=== PATIENT | female | born 1975 | race Caucasian/White ===

== ENCOUNTER 2020-12-27 09:38 | Emergency (ER) | payer MEDICAID ==
[~2020-12-27] VITALS: Ht 175.3 cm; Wt 95.3 kg
[2020-12-27 10:19] LABS: Basophils # (auto) 0.1 10 ^3/uL (0-0.2); Basophils % (auto) 1.2 % (0.0-2.0); Eosinophils # (auto) 0.3 10 ^3/uL (0-0.8); Eosinophils % (auto) 3.5 % (0.0-7.0); Hematocrit 44.1 % (36.0-46.0); Lymphocytes # (auto) 2.6 10 ^3/uL (0.4-5.4); Lymphocytes % (auto) 36.3 % (10.0-50.0); Mean Corpuscular Hemoglobin 30.3 pg (28.0-32.0); Mean Corpuscular Hgb Conc. 34.1 g/dL (32.0-36.0); Mean Corpuscular Volume 88.8 fL (80.0-100.0); Monocytes # (auto) 0.5 10 ^3/uL (0-1.3); Monocytes % (auto) 6.8 % (0.0-12.0); Neutrophils # (auto) 3.7 10 ^3/uL (1.6-8.6); Neutrophils % (auto) 52.2 % (37.0-80.0); Nucleated Red Blood Cells % 0.3 %; Red Blood Cells 4.96 10^6/uL (4.0-5.20); Red Cell Distribution Width 13.3 % (11.8-14.3); White Blood Cell 7.1 10^3/uL (4.4-10.8)
[2020-12-27 10:31] LABS: Potassium 4.3 mmol/L (3.5-5.1)
[2020-12-27 10:39] LABS: Albumin 3.8 g/dL (3.4-5.0); BUN/Creatinine Ratio 17.4; Bilirubin, Total 1.1 mg/dL (0.2-1.0); Calcium 8.9 mg/dL (8.5-10.1); Total Protein 7.6 g/dL (6.4-8.2)
[2020-12-27 10:57] VITALS: BP 114/68
[2020-12-27 11:13] LABS: Urine Bacteria FEW /hpf (None Seen); Urine Blood 1+ /uL (Negative); Urine Mucus FEW (None Seen); Urine Specific Gravity 1.028 (1.001-1.035); Urine WBC 3 /hpf (0 - 5)
[2020-12-27] MEDS ORDERED: KETOROLAC TROMETH 60MG/2ML VIAL IM ONE (11:45)
== END 2020-12-27 12:22 | disposition home or self-care (01) ==
LOC: ER 09:38
DX: R10.11 Right upper quadrant pain (principal); K76.0 Fatty (change of) liver, not elsewhere classified; R94.8 Abnormal results of function studies of other organs and systems; Z20.822 Contact with and (suspected) exposure to COVID-19
CPT/HCPCS: 36415; 76705; 80053; 81001; 85025; 96372; 99284; C9803; J1885; U0003

== ENCOUNTER 2022-10-13 09:28 | Emergency (ER) | payer MEDICAID ==
[~2022-10-13] VITALS: Ht 172.7 cm; Wt 104.0 kg
[2022-10-13 10:00] VITALS: BP 150/101
[2022-10-13] MEDS ORDERED: PENI500T2 PO (11:14)
[2022-10-13] MEDS ORDERED: ACET500T58 PO (11:14)
[2022-10-13] MEDS ORDERED: cefTRIAXone SOD 1,000 MG VL IM ONE (11:15)
[2022-10-13] MEDS ORDERED: ACETAMINOPHEN 500 MG TAB PO ONE (11:15)
== END 2022-10-13 12:10 | disposition home or self-care (01) ==
LOC: ER 09:28
DX: K04.7 Periapical abscess without sinus (principal); F32.9 Major depressive disorder, single episode, unspecified; Z79.1 Long term (current) use of non-steroidal anti-inflammatories (NSAID); Z79.899 Other long term (current) drug therapy
CPT/HCPCS: 96372; 99283; J0696

== ENCOUNTER 2024-09-02 00:30 | Emergency (ER) | payer OTHER, MEDICAID ==
[~2024-09-02] VITALS: Ht 172.7 cm; Wt 90.9 kg
[~2024-09-02 00:30] MED LIST: ACET500T58 PO; PENI500T2 PO
[2024-09-02] MEDS ORDERED: ACE3T PO (03:54)
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
[2024-09-02] MEDS: ACETAMINOPHEN 325 MG TAB PO ONE (03:58)
[2024-09-02 04:10] VITALS: BP 144/81; PULSE 68; RESP 16; TEMP 97.8; O2SAT 98
--- NOTE | 2024-09-02 04:51 | DVH ---
CLINICAL INDICATION: left forearm pain TECHNIQUE: XY L FOREARM XRAY Comparison: None FINDINGS/IMPRESSION: : There is no evidence of acute fracture or dislocation. Soft tissues are unremarkable.
--- NOTE | 2024-09-02 04:51 | DVH ---
INDICATION: thoracic back pain TECHNIQUE: 2 views of the thoracic spine were obtained. COMPARISON: None FINDINGS: There is no evidence of fracture, subluxation and/or dislocation. The alignment is anatomical. The paravertebral soft tissues were unremarkable. IMPRESSION: 1. Of the visualized spine, there is no evidence for fracture or subluxation.
--- NOTE | 2024-09-02 05:37 | DVH ---
EXAM: CT CERVICAL WITHOUT CONTRAST INDICATION: neck pain EXAM DATE: 09/02/2024 03:47 AM COMPARISON: None TECHNIQUE: Multiple axial CT images of the cervical spine were obtained using bone algorithm. Sagitta l and coronal reformatting was done. Bone and soft tissue windows were reviewed. Radiation Dose Information: CT Dose: CTDI volume is 23.9 mGy. Dose-length product is 632.8 mGy*cm FINDINGS: The cervical alignment is intact. No acute cervical spine fracture is identified. The vertebral body heights are intact. No suspicious osseous lesions are identified. Multilevel intervertebral disc space narrowing and ventral spurring. No significant spinal stenosis. Multilevel neural foraminal stenosis. There is no prevertebral soft tissue swelling. Lung apices are clear. IMPRESSION: 1. No evidence of acute cervical spine fracture or traumatic malalignment. 2. Multilevel cervical spondylosis. All CT scans at this medical facility are performed using dose modulation techniques as appropriate t o a performed exam including the following: Automated exposure control was utilized; adjustment of th e MA and/or KV according to patient size; and use of iterative reconstruction technique.
== END 2024-09-02 06:37 | disposition home or self-care (01) ==
LOC: ER 00:30
DX: S16.1XXA Strain of muscle, fascia and tendon at neck level, initial encounter (principal); S29.012A Strain of muscle and tendon of back wall of thorax, initial encounter; S50.12XA Contusion of left forearm, initial encounter; F32.A Depression, unspecified; Z79.899 Other long term (current) drug therapy; V49.9XXA Car occupant (driver) (passenger) injured in unspecified traffic accident, initial encounter; Y93.89 Activity, other specified; Y92.89 Other specified places as the place of occurrence of the external cause; Y99.8 Other external cause status
CPT/HCPCS: 72070; 72125; 73090

== ENCOUNTER 2025-04-05 10:49 | Emergency (ER) | payer MEDICAID, OTHER ==
[~2025-04-05] VITALS: Ht 172.7 cm; Wt 78.5 kg
[~2025-04-05 10:49] MED LIST changes: +ACE3T PO
--- NOTE | 2025-04-05 11:32 | ED.PDOC ---
History of Present Illness HPI Comments 50-year-old female presents to the ER with prior medical history of depression, bipolar disorder and a chief complaint of nausea and vomiting. Patient reports on having had a sudden onset of nausea and vomiting on Friday of 04/02/2025. Patient states on recently being prescribed bupropion by her psych physician on Friday of 03/28/2025 and assumes that it might be the medication causing the symptoms. Denies any other symptoms at this time. Denies chills, fever, /D, SOB, CP. No other associated symptoms, modifiers, recent injuries or sick contacts present at this time. Chief Complaint: Nausea/Vomiting Time Seen by MD: 11:25 Primary Care Provider: UNKNOWN Reviewed Notes: Nurses Notes, Medications, Allergies Allergies: Coded Allergies: No Known Drug Allergy (Verified Allergy, Unknown, 12/27/20) Home Meds Active Scripts Acetaminophen W/ Codeine (Tylenol W/Cod #3) 1 Tab Tb, 1 TAB PO Q6HPRN, #10 TAB 0 Refills Prov:HOLLI MCGRAW 09/02/24 Acetaminophen (Acetaminophen) 500 Mg Tab, 500 MG PO TIDP PRN for 7 Days, #21 TAB 0 Refills Prov:MUKESH METZ MULE OPERATOR 10/13/22 Penicillin V Potassium (Veetids) 500 Mg Tab, 500 MG PO QID for 10 Days, #40 TAB 0 Refills Prov:MUKESH METZ MULE OPERATOR 10/13/22 Information Source: Patient Mode of Arrival: Ambulatory Severity: Moderate Timing: Days Duration: Since onset, Days Prehospital treatment: None Past Medical History PAST MEDICAL HISTORY: Depression Past Medical History (Other): Bipolar disorder Surgical History: Denies all surgeries BUCKLE INSPECTOR History: Denies all BUCKLE INSPECTOR Hx Family History Family History: Reviewed,noncontributory to illness, Unknown Social History Smoker: Non-Smoker Alcohol: Denies ETOH Use Drugs: Denies Drug Use Lives In: Home Constitutional: denies: chills, diaphoresis, fatigue, fever, malaise, sweats, weakness, others EENTM: denies: blurred vision, double vision, ear bleeding, ear discharge, ear drainage, ear pain, ear ringing, eye pain, eye redness, hearing loss, mouth pain, mouth swelling, nasal discharge, nose bleeding, nose congestion, nose pain, photophobia, tearing, throat pain, throat swelling, voice changes, others Respiratory: denies: cough, hemoptysis, orthopnea, SOB at rest, shortness of breath, SOB with excertion, stridor, wheezing, others Cardiovascular: denies: chest pain, dizzy spells, diaphoresis, Dyspnea on exertion, edema, irregular heart beat, left arm pain, lightheadedness, palpitations, PND, syncope, others Gastrointestinal: reports: nausea, vomiting; denies: abdomen distended, abdominal pain, blood streaked bowels, constipated, diarrhea, dysphagia, diffi culty swallowing, hematemesis, melena, poor appetite, poor fluid intake, rectal bleeding, rectal pain, others Genitourinary: denies: abnormal vagina bleeding, burning, dyspareunia, dysuria, flank pain, frequency, hematuria, incontinence, pain, , vagina discharge, urgency, others Neurological: denies: dizziness, fainting, headache, left sided numbness, left sided weakness, numbness, paresthesia, pre-existing deficit, right sided numbness, right sided weakness, seizure, speech problems, tingling, tremors, weakness, others Musculoskeletal: denies: back pain, gout, joint pain, joint swelling, muscle pain, muscle stiffness, neck pain, others Integumetry: denies: bruises, change in color, change in hair/nails, dryness, laceration, lesions, lumps, rash, wounds, others Allergic/Immunocompromised: denies: Difficulty Healing, Frequent Infections, Hives, Itching, others Hematologic/Lymphatic: denies: anemia, blood clots, easy bleeding, easy bruising, swollen glands, others Endocrine: denies: excessive hunger, excessive sweating, excessive thirst, excessive urination, flushing, intolerance to cold, intolerance to heat, unexplained weight gain, unexplained weight loss, others Psychiatric: denies: anxiety, bipolar disorder, depression, hopeless, panic disorder, schizophrenia, sleepless, suicidal, others All Other Systems: Reviewed and Negative Physical Exam General Appearance: Moderate Distress, Normal HEENT: Normal ENT Inspection, Pharynx Normal, TMs Normal Neck: Full Range of Motion, Non-Tender, Normal, Normal Inspection Respiratory: Chest Non-Tender, Lungs Clear, No Accessory Muscle Use, No Respira tory Distress, Normal Breath Sounds Cardiovascular: No Edema, No JVD, No Murmur, No Gallop, Normal Peripheral Pulses, Regular Rate/Rhythm Breast Exam: Deferred Gastrointestinal: No Organomegaly, Non Tender, No Pulsatile Mass, Normal Bowel Sounds, Soft Genitalia: Deferred Pelvic: Deferred Rectal: Deferred Extremities: No calf tenderness, Normal capillary refill, Normal inspection, Normal range of motion, Non-tender, No pedal edema Musculoskeletal : Apperance: Normal Neurologic: Alert, unit educator II-XII nml as Tested, No Motor Deficits, Normal Affect, Normal Mood, No Sensory Deficits Cerebellar Function: Normal Reflexes: Normal Skin: Dry, Normal Color, Warm Peripheral Pulses: 3+ Radial (R), 3+ Radial (L) Lymphatic: No Adenopathy Was a procedure done? Was a procedure done?: No Differential Dx Considerations may include: Anemia Electrolyte imbalance X-Ray, Labs, Meds, VS Vital Signs Date Time Temp Pulse Resp B/P (MAP) Pulse Ox O2 Delivery O2 Flow Rate FiO2 04/05/25 12:30 120 18 95 Room Air 04/05/25 12:30 97.7 120 18 134/83 (100) 95 97.7 04/05/25 10:51 98.0 124 17 148/113 96 98.0 Lab Test 04/05/25 12:04 Range/Units White Blood Count 11.9 H 4.4-10.8 10^3/uL Red Blood Count 5.11 4.0-5.20 10^6/uL Hemoglobin 15.5 12.2-16.2 g/dL Hematocrit 44.4 36.0-46.0 % Mean Corpuscular Volume 86.9 80.0-100.0 fL Mean Corpuscular Hemoglobin 30.4 28.0-32.0 pg Mean Corpuscular Hemoglobin Concent 35.0 32.0-36.0 g/dL Red Cell Distribution Width 12.7 11.8-14.3 % Platelet Count 387 140-450 10^3/uL Mean Platelet Volume 7.7 6.9-10.8 fL Neutrophils (%) (Auto) 65.5 37.0-80.0 % Lymphocytes (%) (Auto) 26.8 10.0-50.0 % Monocytes (%) (Auto) 6.4 0.0-12.0 % Eosinophils (%) (Auto) 0.5 0.0-7.0 % Basophils (%) (Auto) 0.8 0.0-2.0 % Neutrophils # (Auto) 7.8 1.6-8.6 10 ^3/uL Lymphocytes # (Auto) 3.2 0.4-5.4 10 ^3/uL Monocytes # (Auto) 0.8 0-1.3 10 ^3/uL Eosinophils # (Auto) 0.1 0-0.8 10 ^3/uL Basophils # (Auto) 0.1 0-0.2 10 ^3/uL Nucleated Red Blood Cells 0.0 % Sodium Level 139 136-145 mmol/L Potassium Level 3.6 3.5-5.1 mmol/L Chloride Level 104 98-107 mmol/L Carbon Dioxide Level 19 L 20-31 mmol/L Anion Gap 16 H 5-15 Blood Urea Nitrogen 12 9-23 mg/dL Creatinine 0.91 0.550-1.02 mg/dL Glomerular Filtration Rate Calc 76 >90 mL/min BUN/Creatinine Ratio 13.2 10.0-20.0 Serum Glucose 105 74-106 mg/dL Calcium Level 10.3 8.7-10.4 mg/dL Current Medications Medications (Trade) Dose Ordered Sig/Aimee Route Start Time Stop Time Status Last Admin Sodium Chloride 1,000 ml @ 1,000 mls/hr Q1H ONCE IV 04/05/25 12:00 04/05/25 12:59 DC 04/05/25 12:00 Ondansetron HCl (Zofran) 4 mg ONCE ONCE IV 04/05/25 12:00 04/05/25 12:24 DC 04/05/25 12:54 Patient alert. Vitals stable. Establish intravenous access. Saturation pristine on room air. Tachycardic. WBC elevated. Was given Zofran. Possible gastroenteritis. Abdomen is soft nontender. No acute process. Explained to the patient. Was told to follow up with her primary care physician. Was told to come back if there is any problem. Time of 1ST Reevaluation: 11:55 Reevaluation 1ST: Unchanged Patient Education/Counseling: Diagnosis, Treatment, Prognosis Family Education/Counseling: No Family Present SEPSIS Sepsis Screen Date sepsis recognized/suspect: Apr 05, 2025 Time Sepsis recognized/suspect: 105 Recent Procedure: No On Antibiotic Therapy: No Respiratory Rate >20: No Heart Rate >90: Yes Temp<36 C (96.8 F) or >38.3 C: No SBP <90 or MAP <65 mmHG: No New Acute Mental Status Change: No Is the patient on CPAP, BIPAP,: No Physician Orders Urinalysis (04/05/25 11:55) Vital Signs Date Time Temp Pulse Resp B/P (MAP) Pulse Ox O2 Delivery O2 Flow Rate FiO2 04/05/25 12:30 120 18 95 Room Air 04/05/25 12:30 97.7 120 18 134/83 (100) 95 97.7 04/05/25 10:51 98.0 124 17 148/113 96 98.0 Laboratory Tests Test 04/05/25 12:04 White Blood Count 11.9 10^3/uL (4.4-10.8) H Medications Medications Dose Ordered Sig/Aimee Route Start Time Stop Time Status Last Admin Dose Admin Ondansetron HCl 4 mg ONCE ONCE IV 04/05/25 12:00 04/05/25 12:24 DC 04/05/25 12:54 Sodium Chloride 1,000 ml @ 1,000 mls/hr Q1H ONCE IV 04/05/25 12:00 04/05/25 12:59 DC 04/05/25 12:00 Departure 1 Departure Time of Disposition: 14:15 Impression: Primary Impression: Gastroenteritis Disposition: 01 HOME / SELF CARE / HOMELESS Condition: Good e-Prescriptions Ondansetron Odt 4MG Tab (ZOFRAN PO) 4 Mg Tb 4 MG PO BS for 5 Days, #5 TAB ODT TAB-DISSOLVE IN MOUTH, THEN SWALLOW Prov: HARITHA GOLDSMITH MD 04/05/25 Cephalexin (KEFLEX CAPSULE) 250 Mg Cp 250 MG PO QID for 5 Days, #20 BOTTLE Prov: HARITHA GOLDSMITH MD 04/05/25 Discharged With: Self Critical Care Note Critical Care Time?: No Stability Stability form required: No Heart Score Heart Score: Heart Score Response (Comments) Value History N/A 0 EKG N/A 0 Age N/A 0 Risk Factors N/A 0 Troponin N/A 0 Total 0 I personally scribed for HARITHA GOLDSMITH MD ([email or web address]) on 04/05/25 at 11:32. Electronically submitted by Chalo Hardy ([email or web address]). HARITHA GOLDSMITH MD Apr 05, 2025 11:32
[2025-04-05] MEDS: SODIUM CHLORIDE 0.9% 1,000 ML IV ONE (12:00)
[2025-04-05 12:15] LABS: Hematocrit 44.4 % (36.0-46.0); Hemoglobin 15.5 g/dL (12.2-16.2); Mean Corpuscular Hemoglobin 30.4 pg (28.0-32.0); Mean Corpuscular Volume 86.9 fL (80.0-100.0); Nucleated Red Blood Cells % 0.0 %
[2025-04-05 12:19] LABS: Chloride 104 mmol/L (98-107); Potassium 3.6 mmol/L (3.5-5.1); Sodium 139 mmol/L (136-145)
[2025-04-05 12:20] LABS: Anion Gap 16 (5-15)
[2025-04-05 12:21] LABS: Calcium 10.3 mg/dL (8.7-10.4)
[2025-04-05 12:26] LABS: BUN/Creatinine Ratio 13.2 (10.0-20.0); Blood Urea Nitrogen 12 mg/dL (9-23); Glucose 105 mg/dL (74-106)
[2025-04-05 12:27] LABS: Carbon Dioxide 19 mmol/L (20-31)
[2025-04-05 12:30] VITALS: BP 134/83; PULSE 120; RESP 18; TEMP 97.7; O2SAT 95
[2025-04-05] MEDS: ONDANSETRON HCL 4 MG/2 ML VIAL IV ONE (12:54)
[2025-04-05] MEDS ORDERED: CEPH250C PO (14:17)
[2025-04-05] MEDS ORDERED: ZOFR4T PO (14:18)
== END 2025-04-05 14:30 | disposition home or self-care (01) ==
LOC: ER 10:49
DX: K52.9 Noninfective gastroenteritis and colitis, unspecified (principal); F32.A Depression, unspecified; Z79.899 Other long term (current) drug therapy
CPT/HCPCS: 36415; 80048; 85025; 96361; 96374; 99283; J2405; J7030